=== PATIENT | male | born 1965 | race Caucasian/White ===

== ENCOUNTER 2017-12-15 07:42 | Outpatient (CLI) | payer OTHER ==
[2017-12-15 12:57] LABS: BASOPHILS # (AUTO) 0.1 10^3/uL (0.0-0.1); BASOPHILS % (AUTO) 0.9 %; EOSINOPHILS # (AUTO) 0.2 10^3/uL (0.0-0.7); EOSINOPHILS % (AUTO) 3.4 %; HGB - HEMOGLOBIN 14.3 g/dL (14.0-18.0); LYMPHOCYTES # (AUTO) 1.7 10^3/uL (1.5-3.5); LYMPHOCYTES % (AUTO) 27.7 %; MEAN CORPUSCULAR HEMOGLOBIN 30.5 pg (27.0-31.0); MEAN CORPUSCULAR HGB CONC 34.1 g/dL (32.0-36.0); MEAN CORPUSCULAR VOLUME 89.5 fL (80.0-94.0); MEAN PLATELET VOLUME 7.7 fL (7.4-11.4); MONOCYTES # (AUTO) 0.4 10^3/uL (0.0-1.0); MONOCYTES % (AUTO) 6.8 %; NEUTROPHILS # (AUTO) 3.8 10^3/uL (1.5-6.6); NEUTROPHILS % (AUTO) 61.2 %; PLT - PLATELET COUNT 310 10^3/uL (130-450); RED BLOOD COUNT 4.67 10^6/uL (4.70-6.10); RED CELL DISTRIBUTION WIDTH 13.4 % (12.0-15.0); WHITE BLOOD COUNT 6.2 x10^3/uL (4.8-10.8)
[2017-12-15 13:03] LABS: ALBUMIN 4.1 g/dL (3.2-5.5); ALBUMIN/GLOBULIN RATIO 1.1 (1.0-2.2); ALKALINE PHOSPHATASE 70 IU/L (42-121); ALT ALANINE AMINOTRANSFERASE 23 IU/L (10-60); AST ASPARTATE AMINOTRANSFERASE 15 IU/L (10-42); BILIRUBIN,TOTAL < 0.2 mg/dL (0.2-1.0); BUN - BLOOD UREA NITROGEN 16 mg/dL (6-20); CALCIUM 9.3 mg/dL (8.5-10.3); CARBON DIOXIDE - CO2 28 mmol/L (21-32); CHLORIDE 102 mmol/L (101-111); CHOL/HDL RATIO 7.3 (<5.0); CHOLESTEROL 234 mg/dL; CREATININE 1.2 mg/dL (0.6-1.2); GFR - MDRD 63 (>89); GLUCOSE 128 mg/dL (70-100); HDL CHOLESTEROL 32 mg/dL; LDL CHOLESTEROL,CALCULATED 158 mg/dL; LDL/HDL RATIO 4.9 (<3.6); SODIUM 139 mmol/L (135-145); TOTAL PROTEIN 7.8 g/dL (6.7-8.2); VLDL CHOLESTEROL 44 mg/dL
== END 2017-12-15 07:43 ==
LOC: LAB.N 07:42
PROVIDERS: ATTEND Physician Assistant Medical
DX: Z00.00 Encounter for general adult medical examination without abnormal findings (principal); E78.5 Hyperlipidemia, unspecified; F17.200 Nicotine dependence, unspecified, uncomplicated
CPT/HCPCS: 36415; 80050; 80061; 83721; 84153

== ENCOUNTER 2017-12-20 15:40 | Outpatient (CLI) | payer OTHER ==
[2017-12-20 19:04] LABS: PSA FREE 0.514 ng/mL (0.16-2.81)
[2017-12-20 19:05] LABS: PSA TOTAL 2.627 ng/mL (0.000-2.000)
[2017-12-20 20:43] LABS: THYROID STIMULATING HORMONE 136.95 uIU/mL (0.34-5.60)
[2017-12-20 20:44] LABS: FREE T4 (FREE THYROXINE) 0.26 ng/dL (0.58-1.64)
== END 2017-12-20 15:41 | disposition home or self-care (01) ==
LOC: LAB.N 15:40
PROVIDERS: ATTEND Physician Assistant Medical
DX: R97.20 Elevated prostate specific antigen [PSA] (principal); R94.6 Abnormal results of thyroid function studies
CPT/HCPCS: 36415; 84154; 84439; 84443

== ENCOUNTER 2017-12-27 15:18 | Outpatient (CLI) | payer OTHER ==
[2017-12-29 12:21] LABS: THYROID PEROXIDASE ANTIBODIES >900 IU/mL (<9)
== END 2017-12-27 15:19 | disposition home or self-care (01) ==
LOC: LAB.N 15:18
PROVIDERS: ATTEND Physician Assistant Medical
DX: E03.9 Hypothyroidism, unspecified (principal); R94.6 Abnormal results of thyroid function studies
CPT/HCPCS: 36415; 86376; 86800

== ENCOUNTER 2018-01-17 16:36 | Outpatient (CLI) | payer OTHER ==
--- NOTE | 2018-01-17 17:57 | Ultrasound Report ---
Reason: THYROID NODULE,RT,ELARGED,HYPOTHYROID,ELV TSH Procedure Date: 01/17/2018 Accession Number: [id number] / [id number] Procedure: US - Head or Neck Soft Tissue CPT Code: FULL RESULT: EXAM: THYROID ULTRASOUND EXAM DATE: 01/17/2018 05:35 PM. CLINICAL HISTORY: THYROID Nodule, rt, enlarged,HYPOTHYROID,ELV TSH. COMPARISON: CT neck dated 07/05/2014. TECHNIQUE: Real time sonographic imaging of the thyroid was performed by the tissue inserter. Multiple territory service representative static images were saved for review. FINDINGS: THYROID GLAND: Right Lobe: 2.4 x 2.5 x 5.5 cm, volume 17.2 cc. Markedly heterogeneous. Normal vascularity. Right Lobe Nodules: None. Left Lobe: 2.0 x 2.1 x 4.9 cm, volume 10.9 cc. Markedly heterogeneous. Normal vascularity. Left Lobe Nodules: None. Isthmus: 4 cm AP. Isthmic Nodules: None. LYMPH NODES: No adenopathy demonstrated in the central or lateral compartment. OTHER: Small nodule below the left lower pole measuring about 0.9 x 0.4 x 0.4 cm, lymph node versus parathyroid gland. IMPRESSION: 1. Large heterogeneous gland compatible with history of hypothyroidism. No definite mass. 2. Small nodule below left lower pole, lymph node versus parathyroid gland. Management recommendations are based on 2015 [place] [employer] Management Guidelines for Adult Patients with Thyroid Nodules and Differentiated Thyroid Cancer. RADIA
== END 2018-01-17 16:37 | disposition home or self-care (01) ==
LOC: DI 16:36
PROVIDERS: ATTEND Physician Assistant Medical
DX: E04.9 Nontoxic goiter, unspecified (principal); R22.1 Localized swelling, mass and lump, neck; E03.9 Hypothyroidism, unspecified
CPT/HCPCS: 76536

== ENCOUNTER 2018-02-01 08:00 | Outpatient (CLI) | payer OTHER ==
[2018-02-01 19:22] LABS: HB2 TOTAL 15.2 g/dL; HEMOGLOBIN A1C 0.77 g/dL; HEMOGLOBIN A1C % 6.8 % (4.6-6.2)
== END 2018-02-01 08:01 | disposition home or self-care (01) ==
LOC: LAB.N 08:00
PROVIDERS: ATTEND Physician Assistant Medical
DX: R73.9 Hyperglycemia, unspecified (principal)
CPT/HCPCS: 36415; 83036

== ENCOUNTER 2018-03-27 08:00 | Outpatient (CLI) | payer OTHER ==
[2018-03-27 13:20] LABS: PSA FREE 1.69 ng/mL (0.16-2.81)
[2018-03-27 13:21] LABS: PSA TOTAL 3.12 ng/mL (0.000-2.000)
== END 2018-03-27 23:59 | disposition home or self-care (01) ==
LOC: LAB.N 08:00
PROVIDERS: ATTEND Physician Assistant Medical
DX: R97.20 Elevated prostate specific antigen [PSA] (principal)
CPT/HCPCS: 36415; 84153; 84154

== ENCOUNTER 2018-03-31 08:00 | Outpatient (CLI) | payer OTHER ==
[2018-03-31 19:49] LABS: CREATININE 1.2 mg/dL (0.6-1.2)
[2018-03-31 20:11] LABS: FREE T4 (FREE THYROXINE) 0.91 ng/dL (0.58-1.64)
== END 2018-03-31 23:59 | disposition home or self-care (01) ==
LOC: LAB.N 08:00
PROVIDERS: ATTEND Physician Assistant Medical
DX: R73.9 Hyperglycemia, unspecified (principal); E03.9 Hypothyroidism, unspecified
CPT/HCPCS: 36415; 80048; 80050; 84439; 84481

== ENCOUNTER 2018-12-11 15:27 | Outpatient (CLI) | payer OTHER ==
[2018-12-11 16:44] LABS: THYROID STIMULATING HORMONE < 0.08 uIU/mL (0.34-5.60)
[2018-12-11 16:46] LABS: FREE T4 (FREE THYROXINE) 1.17 ng/dL (0.58-1.64)
== END 2018-12-11 15:28 | disposition home or self-care (01) ==
LOC: LAB 15:27
PROVIDERS: ATTEND Internal Medicine Endocrinology, Diabetes & Metabolism
DX: E03.9 Hypothyroidism, unspecified (principal)
CPT/HCPCS: 36415; 84439; 84443

== ENCOUNTER 2019-03-05 08:52 | Emergency (ER) | payer OTHER ==
[2019-03-05 09:00] VITALS: BP 146/95
[2019-03-05] MEDS ORDERED: BUFFERED LIDOCAINE 10 ML SYRINGE SUBQ STA (09:27)
--- NOTE | 2019-03-05 09:28 | ED Physician Documentation ---
History of Present Illness - Stated complaint Stated Complaint: BUMP ON BACK - Chief complaint Chief Complaint: General - History obtained from History obtained from: Patient - History of Present Illness Timing: How many days ago (6) Pain level now: 9 - Additonal information Additional information: This is a 53-year-old man who has had a cyst on his left back for over a year. It has not bothered him until Thi Anayeli when it started to get a little irritated and has grown twice at size since then and now is 9 out of 10 pain. Has not drained anything spontaneously. No fever. It is interrupting with his sleep. He is not diabetic. He is allergic to morphine. Review of Systems Constitutional: denies: Fever Skin: reports: Other (History of sebaceous cysts) Endocrine: reports: Other (No diabetes) PD PAST MEDICAL HISTORY - Past Medical History Past Medical History: Yes Cardiovascular: High cholesterol GI: GERD : Kidney stones - Past Surgical History Past Surgical History: Yes General: Appendectomy - Present Medications Home Medications: Ambulatory Orders Medication Instructions Recorded Confirmed Atorvastatin Calcium [Lipitor] 10 mg PO DAILY 07/05/14 05/03/15 Esomeprazole Magnesium [Nexium] 40 mg PO DAILY 07/05/14 05/03/15 Ibuprofen [Motrin] 600 mg PO Q6H PRN #30 tab 05/03/15 Ondansetron Odt [Zofran] 4 mg TL Q6H PRN #10 tablet 05/03/15 oxyCODONE/ACET 5/325 [Percocet 5 1 each PO Q4-6H PRN #20 tablet 05/03/15 mg/325 mg] - Allergies Allergies/Adverse Reactions: Allergies Allergy/AdvReac Type Severity Reaction Status Date / Time morphine Allergy Intermediate Rash Verified 03/05/19 08:56 - Social History Does the pt smoke?: Yes Smoking Status: Current every day smoker Does the pt drink ETOH?: No Does the pt have substance abuse?: No - Immunizations Immunizations are current?: Yes - POLST Patient has POLST: No PD ED PE NORMAL - Vitals Vital signs reviewed: Yes - General General: Alert and oriented X 3, No acute distress, Well developed/nourished - HEENT HEENT: Atraumatic - Derm Derm: Other (Tender subcutaneous mass in the left back about the mid thoracic. There is erythema and fluctuance.) - Neuro Neuro: Alert and oriented X 3, No motor deficit, No sensory deficit, Normal speech - Psych Psych: Normal mood, Normal affect Results - Vitals Vitals: Vital Signs - 24 hr 03/05/19 08:56 Temperature 36.6 C Heart Rate 72 Respiratory 16 Rate Blood Pressure 146/95 H O2 Saturation 98 Oxygen O2 Source Room air Procedures - Lumbar Puncture Position: Laying right side Location: Other - Abscess I&D (location) Back left Upper Preparation: Chlorhexadine, Lidocaine 1% Incision: Incised with scalpel, Purulent drainage, Loculations broken, Irrigated, Packed Other: Pt tolerated well, Dressing applied. No: Antibiotic prescribed PD MEDICAL DECISION MAKING - ED course Complexity details: d/w patient ED course: Abscess was drained without difficulty. Patient was instructed on wound care. Packing removal in 48 hours. His questions were answered. Departure - Departure Disposition: 01 Home, Self Care Clinical Impression: Sebaceous cyst, Abscess Condition: Good Instructions: ED Abscess IandD Follow-Up: Aryan Soto PA-C [Primary Care Provider] - Comments: Keep dressing over this to collect any drainage. It is okay to shower and wash the area gently with antibacterial soap. Try not to pull the packing out but if it falls out before 48 hours you can keep the area open with dilute hydrogen peroxide on a Q-tip applied directly to the draining area. Packing should be removed in 48 hours. If you feel comfortable pulling it out at home that is fine or follow-up with your primary care provider or return here for packing removal if needed. Ibuprofen or Tylenol for pain. This should show gradual improvement but if there is continued increase in size, pain or spreading redness or you develop a fever you should have it looked at for reevaluation.
== END 2019-03-05 10:07 | disposition home or self-care (01) ==
LOC: ED 08:52
DX: L02.212 Cutaneous abscess of back [any part, except buttock and flank] (principal); L72.3 Sebaceous cyst; F17.200 Nicotine dependence, unspecified, uncomplicated
CPT/HCPCS: 10060; 62270

== ENCOUNTER 2019-05-17 08:27 | Outpatient (CLI) | payer OTHER ==
[2019-05-17 12:24] LABS: BASOPHILS # (AUTO) 0.1 10^3/uL (0.0-0.1); EOSINOPHILS # (AUTO) 0.3 10^3/uL (0.0-0.7); EOSINOPHILS % (AUTO) 5.7 %; HGB - HEMOGLOBIN 15.3 g/dL (14.0-18.0); LYMPHOCYTES # (AUTO) 2.2 10^3/uL (1.5-3.5); LYMPHOCYTES % (AUTO) 37.6 %; MEAN CORPUSCULAR HEMOGLOBIN 30.7 pg (27.0-31.0); MEAN CORPUSCULAR HGB CONC 34.8 g/dL (32.0-36.0); MEAN CORPUSCULAR VOLUME 88.2 fL (80.0-94.0); MEAN PLATELET VOLUME 10.3 fL (7.4-11.4); MONOCYTES # (AUTO) 0.5 10^3/uL (0.0-1.0); NEUTROPHILS # (AUTO) 2.7 10^3/uL (1.5-6.6); NEUTROPHILS % (AUTO) 46.4 %; PLT - PLATELET COUNT 287 10^3/uL (130-450); RED BLOOD COUNT 4.99 10^6/uL (4.70-6.10); RED CELL DISTRIBUTION WIDTH 12.7 % (12.0-15.0); WHITE BLOOD COUNT 5.8 x10^3/uL (4.8-10.8)
[2019-05-17 12:44] LABS: ALBUMIN/GLOBULIN RATIO 1.3 (1.0-2.2); ALKALINE PHOSPHATASE 65 IU/L (42-121); ALT ALANINE AMINOTRANSFERASE 40 IU/L (10-60); AST ASPARTATE AMINOTRANSFERASE 20 IU/L (10-42); BILIRUBIN,TOTAL 0.7 mg/dL (0.2-1.0); BUN - BLOOD UREA NITROGEN 13 mg/dL (6-20); CALCIUM 8.8 mg/dL (8.5-10.3); CARBON DIOXIDE - CO2 26 mmol/L (21-32); CHLORIDE 104 mmol/L (101-111); CHOLESTEROL 139 mg/dL; GFR - MDRD 77 (>89); GLUCOSE 143 mg/dL (70-100); HDL CHOLESTEROL 28 mg/dL; LDL CHOLESTEROL,CALCULATED 88 mg/dL; LDL/HDL RATIO 3.1 (<3.6); SODIUM 137 mmol/L (135-145); TOTAL PROTEIN 7.2 g/dL (6.7-8.2); VLDL CHOLESTEROL 23 mg/dL
== END 2019-05-17 23:59 | disposition home or self-care (01) ==
LOC: LAB.N 08:27
PROVIDERS: ATTEND Physician Assistant Medical
DX: E78.5 Hyperlipidemia, unspecified (principal); R97.20 Elevated prostate specific antigen [PSA]
CPT/HCPCS: 36415; 80053; 80061; 83721; 84153; 85025

== ENCOUNTER 2020-02-06 15:33 | Outpatient (CLI) | payer OTHER | END 2020-02-06 15:34 | disposition home or self-care (01) | LOC: COV 15:33 | PROVIDERS: ATTEND Family Medicine | DX: Z20.828 Contact with and (suspected) exposure to other viral communicable diseases (principal) ==